=== PATIENT | male | born 1970 | race American Indian/Alaskan Native ===

== ENCOUNTER 2020-06-27 19:18 | Emergency (ER) | payer OTHER ==
--- NOTE | 2020-06-27 19:25 | Event Note ---
ED Screening Note ED Screening Note: Crush injury by machine to left lower leg He states his tetanus immunization is up-to-date He is neurovascularly intact This initial assessment/diagnostic orders/clinical plan/treatment(s) is/are subject to change based on patients health status, clinical progression and re- assessment by fellow clinical providers in the ED. Further treatment and workup at subsequent clinical providers discretion. Patient/guardian urged not to elope from the ED as their condition may be serious if not clinically assessed and managed. Initial orders include: X-ray left tib-fib
[2020-06-27 19:29] VITALS: BP 144/67
[2020-06-27] MEDS ORDERED: IBUPROFEN 600 MG TAB PO ONE (19:43)
[2020-06-27] MEDS ORDERED: ACETAMINOPHEN 500 MG TAB PO ONE (19:43)
--- NOTE | 2020-06-27 20:08 | XRay Report ---
LEFT TIBIA/FIBULA, 5 VIEWS INDICATION / CLINICAL INFORMATION: crush injury left lower leg. COMPARISON: None available. FINDINGS: There are is a nondisplaced transverse fracture through the mid shaft of the fibula. Skeletal structu res are otherwise intact and without additional visible fracture or malalignment. There are is signif icant soft tissue swelling throughout the lower leg primarily noted in the region of the calf. Small amounts of gas are seen in the superficial soft tissues. IMPRESSION: 1. Nondisplaced transverse fracture through the mid diaphysis of the fibula. 2. Stents of soft tissue swelling throughout the proximal and mid aspect of the lower leg. Signer Name: Teagan Parada MD Signed: 06/27/2020 8:04 PM Workstation Name: [id number]
--- NOTE | 2020-06-27 20:23 | Emergency Department Report ---
ED Lower Extremity HPI - General Chief Complaint: Extremity Injury, Lower Stated Complaint: LEG INJURY Time Seen by Provider: 06/27/20 19:24 Source: patient Mode of arrival: Ambulatory Limitations: No Limitations - History of Present Illness Initial Comments: Patient is a 49-year-old -[place]ron[place] male with a history of gdi-[id number]-atvnkpmnu diabetes who presents to the ED with complaint of acute onset persistent left lower leg pain, swelling and bleeding small puncture wound after his left lower leg got caught up on a machine belt at work about 1 hour ago. Patient states that the pain is worse with ablation and the swelling has gotten worse. Patient states that he is up-to-date with all his vaccinations including tetanus. Patient denies fall, nausea, vomiting, loss of consciousness, dizziness, syncope, seizures, heavy lifting, numbness and tingling or weakness of lower extremities bilaterally, hip pain, knee pain, back pain, chest pain or shortness of breath and head or neck injuries. MD Complaint: leg injury (left lower leg pain, swelling ), other (Bleeding puncture wound on left calf) -: Sudden, hour(s) (1) Injury: Leg: Left (Pain, swelling and puncture wound) Type of Injury: blunt, puncture wound Place: work Severity: severe Severity scale (0 -10): 8 Improves With: nothing Worsens With: weight bearing, movement, palpation Context: direct blow (Left lower leg crushed by a machine belt at work) Associated Symptoms: swelling, able to partially bear weight. denies: numbness, tingling, unable to bear weight - Related Data Home Medications Medication Instructions Recorded Confirmed Last Taken metFORMIN 1,000 PO BID 06/27/20 06/27/20 07:00 Previous Rx's Medication Instructions Recorded Last Taken Type HYDROcodone/APAP 5-325 [[place] 1 each PO Q6HR PRN #12 tablet 06/27/20 Unknown Rx 5/325] Ibuprofen [Motrin] 600 mg PO Q8H PRN #30 tablet 06/27/20 Unknown Rx cephALEXin [Keflex] 500 mg PO Q8HR #30 cap 06/27/20 Unknown Rx Allergies Allergy/AdvReac Type Severity Reaction Status Date / Time No Known Allergies Allergy Unverified 12/16/17 11:49 ED Review of Systems ROS: Stated complaint: LEG INJURY Other details as noted in HPI Constitutional: denies: chills, fever Eyes: denies: eye pain, eye discharge, vision change ENT: denies: ear pain, throat pain Respiratory: denies: cough, shortness of breath, wheezing Cardiovascular: denies: chest pain, palpitations Endocrine: no symptoms reported Gastrointestinal: denies: abdominal pain, nausea, diarrhea Genitourinary: denies: urgency, dysuria Musculoskeletal: joint swelling (left lower leg pain, swelling), arthralgia (left lower leg pain, swelling and small puncture wound). denies: back pain Skin: other (Bleeding small puncture wound on left lower leg). denies: rash, lesions Neurological: denies: headache, weakness, paresthesias Psychiatric: denies: anxiety, depression Hematological/Lymphatic: denies: easy bleeding, easy bruising ED Past Medical Hx - Past Medical History Previous Medical History?: Yes Hx Diabetes: Yes - Surgical History Past Surgical History?: No - Social History Smoking Status: Current Every Day Smoker Substance Use Type: None - Medications Home Medications: Home Medications Medication Instructions Recorded Confirmed Last Taken Type HYDROcodone/APAP 5-325 [[place] 1 each PO Q6HR PRN #12 tablet 06/27/20 Unknown Rx 5/325] Ibuprofen [Motrin] 600 mg PO Q8H PRN #30 tablet 06/27/20 Unknown Rx cephALEXin [Keflex] 500 mg PO Q8HR #30 cap 06/27/20 Unknown Rx metFORMIN 1,000 PO BID 06/27/20 06/27/20 07:00 History ED Physical Exam - General Limitations: No Limitations General appearance: alert, in no apparent distress - Head Head exam: Present: atraumatic, normocephalic, normal inspection - Eye Eye exam: Present: normal appearance, PERRL, EOMI Pupils: Present: normal accommodation - ENT ENT exam: Present: normal exam, normal orophraynx, mucous membranes moist, TM's normal bilaterally, normal external ear exam - Neck Neck exam: Present: normal inspection, full ROM - Respiratory Respiratory exam: Present: normal lung sounds bilaterally. Absent: respiratory distress, wheezes, rales, rhonchi, chest wall tenderness, accessory muscle use, decreased breath sounds, prolonged expiratory - Cardiovascular Cardiovascular Exam: Present: regular rate, normal rhythm, normal heart sounds. Absent: systolic murmur, diastolic murmur, rubs, gallop - GI/Abdominal GI/Abdominal exam: Present: soft, normal bowel sounds. Absent: tenderness, guarding, rebound, hyperactive bowel sounds, hypoactive bowel sounds, organomegaly - Extremities Exam Extremities exam: Present: normal inspection, full ROM, tenderness (Palpable left lower leg tenderness with swelling, and bleeding 1 cm puncture wound on left lateral calf), normal capillary refill, calf tenderness (Palpable left calf tenderness with swelling and a bleeding 1 cm puncture wound) - Back Exam Back exam: Present: normal inspection, full ROM. Absent: tenderness, CVA tenderness (R), CVA tenderness (L), muscle spasm, paraspinal tenderness, vertebral tenderness - Neurological Exam Neurological exam: Present: alert, oriented X3, CN II-XII intact, normal gait, reflexes normal - Psychiatric Psychiatric exam: Present: normal affect, normal mood - Skin Skin exam: Present: warm, dry, intact, normal color, other (Bleeding 1 cm puncture wound on left lower leg). Absent: rash ED Course Vital Signs 06/27/20 19:25 Temperature 98.1 F Pulse Rate 89 Respiratory 18 Rate Blood Pressure 144/67 O2 Sat by Pulse 100 Oximetry ED Lower Extremity MDM - Radiology Data Radiology results: report reviewed, image reviewed [facility] [address] [place] [address] XRay Report Signed Patient: ROMELIA OLIVAREZ MR#: [id number] : 1970 Acct:[id number] Age/Sex: 49 / M ADM Date: 06/27/20 Loc: ED Attending Dr: Ordering Physician: TD TALAVERA Date of Service: 06/27/20 Procedure(s): XR tibia fibula 2V LT Accession Number(s): [id number] cc: TD TALAVERA Fluoro Time In Minutes: LEFT TIBIA/FIBULA, 5 VIEWS INDICATION / CLINICAL INFORMATION: crush injury left lower leg. COMPARISON: None available. FINDINGS: There are is a nondisplaced transverse fracture through the mid shaft of the fibula. Skeletal structures are otherwise intact and without additional visible fracture or malalignment. There are is significant soft tissue swelling throughout the lower leg primarily noted in the region of the calf. Small amounts of gas are seen in the superficial soft tissues. IMPRESSION: 1. Nondisplaced transverse fracture through the mid diaphysis of the fibula. 2. Stents of soft tissue swelling throughout the proximal and mid aspect of the lower leg. Signer Name: Teagan Parada MD Signed: 06/27/2020 8:04 PM Workstation Name: [id number] Transcribed By: Dictated By: Teagan Parada MD Electronically Authenticated By: Teagan Parada MD Signed Date/Time: 06/27/202003 DD/ 00 TD/TT: Print Cancel - Medical Decision Making This is a 49-year-old -Micron[place] male with a history of pby-hkgihyp-hukxhzdos diabetes who presents to the ED with complaint of acute onset persistent left lower leg pain, swelling and bleeding small puncture wound after his left lower leg got caught up on a machine belt at work about 1 hour ago. Patient states that the pain is worse with ablation and the swelling has gotten worse. Patient states that he is up-to-date with all his vaccinations including tetanus. In the ED, patient is alert and oriented x3 and is not in distress. Patient was treated for pain in the ED. The left lower leg puncture wound was cleaned thoroughly with normal saline and dressed appropriately. Patient declined to have the wound sutured. The left tib-fib x-ray showed nondisplaced transverse fracture through the mid diaphysis of the fibula. It also showed stents of soft tissue swelling throughout the proximal and mid aspect of the lower leg. The patient's left lower leg small puncture wound was dressed appropriately. The bleeding is well controlled at this time. The left lower leg was splinted with long-leg sugar tong splint. Patient was also given crutches to aid in ambulation. Patient was therefore discharged home on pain medications, prophylactic antibiotics and also given a referral to the orthopedic surgeon on-call Dr. Dixon for follow-up. Patient was advised to contact Dr. Dixon's office first thing in the morning on Tuesday, June 30, 2020 to schedule a follow-up appointment. Patient was advised return to the ED immediately if symptoms get worse. - Differential Diagnosis Tibial fracture; fibula fracture; leg contusion; muscle strain; laceration Critical care attestation.: If time is entered above; I have spent that time in minutes in the direct care of this critically ill patient, excluding procedure time. ED Disposition Clinical Impression: Puncture wound of left calf Nondisplaced transverse fracture of shaft of left fibula Qualifiers: Encounter type: initial encounter Fracture type: closed Qualified Code(s): S82.425A - Nondisplaced transverse fracture of shaft of left fibula, initial encounter for closed fracture Contusion of left calf Qualifiers: Encounter type: initial encounter Qualified Code(s): S80.12XA - Contusion of left lower leg, initial encounter Disposition: TO HOME OR SELFCARE Is pt being admited?: No Does the pt Need Aspirin: No Condition: Stable Instructions: Fibular Fracture Rehab-SportsMed, Puncture Wound, [id number], Contusion, [id number] Additional Instructions: The x-ray of your left lower leg showed a nondisplaced fracture of midshaft of left fibula. There is also significant soft tissue injury characterized by soft tissue swelling of the left calf. Therefore take medications with food, drink plenty of fluids and follow-up with the orthopedic surgeon Dr. Dixon as advised. Contact Dr. Dixon's office first thing in the morning on Tuesday, June 30, 2020 to schedule a follow-up appointment. Return to the ED immediately if your symptoms get worse. Prescriptions: cephALEXin [Keflex] 500 mg PO Q8HR #30 cap Ibuprofen [Motrin] 600 mg PO Q8H PRN #30 tablet PRN Reason: Pain HYDROcodone/APAP 5-325 [[place] 5/325] 1 each PO Q6HR PRN #12 tablet PRN Reason: Pain Referrals: NAIN DIXON MD [Staff Physician] - 3-5 Days Forms: Work/School Release Form(ED) Time of Disposition: 20:31 Print Language: SAMMARINESE
== END 2020-06-27 21:19 | disposition home or self-care (01) ==
LOC: ED 19:18
DX: S82.425A Nondisplaced transverse fracture of shaft of left fibula, initial encounter for closed fracture (principal); E11.9 Type 2 diabetes mellitus without complications; F17.200 Nicotine dependence, unspecified, uncomplicated; Z79.1 Long term (current) use of non-steroidal anti-inflammatories (NSAID); Z79.84 Long term (current) use of oral hypoglycemic drugs; Z79.899 Other long term (current) drug therapy; W26.9XXA Contact with unspecified sharp object(s), initial encounter; Y93.89 Activity, other specified; Y92.89 Other specified places as the place of occurrence of the external cause; Y99.8 Other external cause status

== ENCOUNTER 2020-06-28 07:12 | Emergency (ER) | payer OTHER ==
[2020-06-28 07:20] VITALS: BP 97/67
--- NOTE | 2020-06-28 08:33 | Emergency Department Report ---
ED Extremity Problem HPI - General Chief complaint: Extremity Injury, Lower Stated complaint: READJUST SPLINT Time Seen by Provider: 06/28/20 07:56 Source: patient Mode of arrival: Ambulatory Limitations: No Limitations - History of Present Illness Initial comments: 49-year-old male was seen in our emergency room on 06/27/20 he was treated for a non-displaced fracture of the mid-shaft of his left fibula. Patient returns to the emergency room this morning stating that the splint needs to be adjusted because it is hurting his ankle. He denies any new falls or injuries he is ambulatory with crutches and patient is in no acute distress just requesting adjustment of the splint. Location: left History of Same: Yes - Related Data Home Medications Medication Instructions Recorded Confirmed Last Taken metFORMIN 1,000 PO BID 06/27/20 06/27/20 07:00 Previous Rx's Medication Instructions Recorded Last Taken Type HYDROcodone/APAP 5-325 [[place] 1 each PO Q6HR PRN #12 tablet 06/27/20 Unknown Rx 5/325] Ibuprofen [Motrin] 600 mg PO Q8H PRN #30 tablet 06/27/20 Unknown Rx cephALEXin [Keflex] 500 mg PO Q8HR #30 cap 06/27/20 Unknown Rx Allergies Allergy/AdvReac Type Severity Reaction Status Date / Time No Known Allergies Allergy Unverified 12/16/17 11:49 ED Review of Systems ROS: Stated complaint: READJUST SPLINT Other details as noted in HPI Comment: All other systems reviewed and negative Constitutional: no symptoms reported Eyes: as per HPI Respiratory: no symptoms reported Endocrine: no symptoms reported Gastrointestinal: as per HPI Musculoskeletal: other (Discomfort from splint over the left ankle) ED Past Medical Hx - Past Medical History Previous Medical History?: Yes Hx Diabetes: Yes - Surgical History Past Surgical History?: No - Social History Smoking Status: Never Smoker Substance Use Type: None - Medications Home Medications: Home Medications Medication Instructions Recorded Confirmed Last Taken Type HYDROcodone/APAP 5-325 [[place] 1 each PO Q6HR PRN #12 tablet 06/27/20 Unknown Rx 5/325] Ibuprofen [Motrin] 600 mg PO Q8H PRN #30 tablet 06/27/20 Unknown Rx cephALEXin [Keflex] 500 mg PO Q8HR #30 cap 06/27/20 Unknown Rx metFORMIN 1,000 PO BID 06/27/20 06/27/20 07:00 History ED Physical Exam - General Limitations: No Limitations General appearance: alert, in no apparent distress - Head Head exam: Present: atraumatic - Eye Eye exam: Present: normal appearance - Respiratory Respiratory exam: Present: normal lung sounds bilaterally - Cardiovascular Cardiovascular Exam: Present: regular rate - Extremities Exam Extremities exam: Present: normal capillary refill, other (Splint intact to his left lower extremity resting right above the ankle. Patient able to move toes freely his toes with a good cap refill warm to touch) - Neurological Exam Neurological exam: Present: alert, oriented X3 - Psychiatric Psychiatric exam: Present: normal affect ED Course Vital Signs 06/28/20 07:14 Temperature 98.3 F Pulse Rate 87 Respiratory 16 Rate Blood Pressure 97/67 O2 Sat by Pulse 95 Oximetry ED Medical Decision Making - Medical Decision Making 49-year-old male seen in the emergency room on 06/27/20 and diagnosed with a non- displaced fracture of the mid-shaft of the left fibula. He returns to the emergency room today requesting adjustment of the splint. Old splint removed and a new long-leg posterior splint applied by the nurse. I checked the splint is properly placed and patient is tolerating well with no further complaint of feeling the irritation on his ankle. Critical Care Time: No Critical care attestation.: If time is entered above; I have spent that time in minutes in the direct care of this critically ill patient, excluding procedure time. ED Disposition Clinical Impression: Nondisplaced transverse fracture of shaft of left fibula Qualifiers: Encounter type: subsequent encounter Fracture type: closed Fracture healing: with routine healing Qualified Code(s): S82.425D - Nondisplaced transverse fracture of shaft of left fibula, subsequent encounter for closed fracture with routine healing Disposition: DC-01 TO HOME OR SELFCARE Is pt being admited?: No Does the pt Need Aspirin: No Condition: Stable Instructions: Nondisplaced Fibular Ankle Fracture Treated With Immobilization, Adult Additional Instructions: Follow your prior instructions of following up with orthopedic doctor. Continue to be nonweightbearing and use your crutches. Leave splint in place until you are seen by orthopedic doctor. Continue with previously discussed prescribed pain medication. Referrals: PRIMARY CARE, [Primary Care Provider] - 3-5 Days
== END 2020-06-28 08:44 | disposition home or self-care (01) ==
LOC: ED 07:12
DX: S82.425D Nondisplaced transverse fracture of shaft of left fibula, subsequent encounter for closed fracture with routine healing (principal); E11.9 Type 2 diabetes mellitus without complications; Z79.899 Other long term (current) drug therapy; X58.XXXD Exposure to other specified factors, subsequent encounter